=== PATIENT | male | born 1980 | race Caucasian/White ===

== ENCOUNTER → 2017-03-14 | Outpatient (CLI) | payer BC ==
--- NOTE | 2017-03-14 15:45 | KCIC ---
PROCEDURE Maxillofacial bone CT without contrast. HISTORY Chronic sinusitis. TECHNIQUE Computed tomographic images of the paranasal sinuses were obtained without contrast. One or more of the following individualized dose reduction techniques were utilized for this examination: 1. Automated exposure control; 2. Adjustment of the mA and/or kV according to patient size; 3. Use of iterative reconstruction technique. COMPARISON None. FINDINGS There is moderate bilateral ethmoid and mild bilateral maxillary, sphenoid and frontal sinus mucosal thickening. There are small right greater than left maxillary sinus mucous retention cysts. There is obstruction of the ostiomeatal units. There is minimal leftward nasal septal deviation. The orbits and mastoid air cells are unremarkable. The temporomandibular joints are intact. IMPRESSION 1. Moderate ethmoid and mild maxillary, sphenoid sinus mucosal thickening with small mucous retention cysts and obstruction of the ostiomeatal units. There is no complete sinus opacification or air-fluid level. 2. Minimal nasal septal deviation. Electronically signed by: Enedelia Rojas (Mar 14, 2017 15:43:55)
== END | disposition home or self-care (01) ==
LOC: KCIC CT 15:19
PROVIDERS: ATTEND Otolaryngology
DX: J32.9 Chronic sinusitis, unspecified (principal)
CPT/HCPCS: 70486